=== PATIENT | female | born 1950 | race Caucasian/White ===

== ENCOUNTER 2016-10-27 14:39 | Emergency (ER) | payer MEDICARE, MEDICAID ==
[2016-10-27 16:05] VITALS: BP 103/48
--- NOTE | 2016-10-27 17:15 | RAD ---
CLINICAL HISTORY: Left flank pain and hematuria COMPARISON: CT abdomen pelvis October 17, 2004 TECHNIQUE: Noncontrast CT examination of the abdomen and pelvis from the lung bases through the initial tuberosities. FINDINGS: VISUALIZED LUNG BASES: The visualized lung bases are grossly clear. There is no pleural effusion. ABDOMEN AND PELVIS: Evaluation of the solid organs and vasculature is limited without intravenous contrast. The liver exhibits homogenous hypoattenuation relative to the spleen. The spleen, pancreas and adrenal glands are grossly normal in appearance. The gallbladder is surgically absent. The kidneys exhibit multiple subcentimeter nodules that are too small to characterize but appear hyperdense. At least one fluid density cyst is identified at the superior pole of the right kidney. There are no renal calculi or signs of hydronephrosis. Evaluation of the gastrointestinal tract is limited in the absence of oral contrast. The small and large bowel are not distended. The 6 mm appendix is identified in the right lower quadrant with gas in the lumen (image [id number]). Scattered rectosigmoid diverticula are seen but none exhibit acute inflammatory changes characteristic of diverticulitis. There is no gross retroperitoneal or mesenteric lymphadenopathy. In the left hemipelvis there is a 2.4 cm fluid density structure most consistent with an ovarian follicle. In the right pelvis there is a similar 2.3 cm structure. The moderately calcified abdominal aorta and iliac arteries are normal in course and diameter. Degenerative changes include multilevel loss of intervertebral disc height involving the lower thoracic and lumbar spine.There are no sinister bone lesions. The superficial portion of the patient's left abdominal wall is cut off from the [id number] due to the patient's large body habitus. IMPRESSION: 1. No renal calculi or hydronephrosis identified bilaterally. 2. There are subcentimeter renal structures bilaterally, some appear hyperattenuating. These are of low clinical suspicion but can be further characterize with nonemergent ultrasound. 3. Fluid density structures measuring 2.3 cm are seen in the bilateral adnexa most consistent with ovarian follicles. These appear stable when compared to the 2004 CT examination. If clinically warranted further characterization can be made with nonemergent pelvic ultrasound. 4. Scattered diverticula in the rectosigmoid colon but none exhibit acute focal inflammatory change characteristic of diverticulitis. 5. The appendix appears normal. 6. There are additional chronic, degenerative and iatrogenic findings described in the body of the report.
[2016-10-27] MEDS ORDERED: Ciprofloxacin TAB* 500 MG PO ONE (17:22)
--- NOTE | 2016-10-27 17:25 | UC ---
Complaint Female HPI - HPI Summary HPI Summary: 66 yo female with a 3 day hx of dysuria and intermittent left flank pain which has been severe at times no f/c slight nausea no vomiting hx kidney stones hx pyelo no abd pain - History Of Current Complaint Chief Complaint: UCGU Stated Complaint: URINARY Time Seen by Provider: 10/27/16 15:58 Hx Last Menstrual Period: years ago Onset/Duration: Sudden Onset, Lasting Minutes Timing: Intermittent, Lasting Minutes Severity Initially: Moderate Severity Currently: Mild Pain Intensity: 1 Pain Scale Used: 0-10 Numeric Character: Burning, Colicy Aggravating Factor(s): Urination Associated Signs And Symptoms: Positive: Back Pain, Nausea. Negative: Fever, Vaginal Bleeding/Discharge, Vaginal Discharge, Vomiting(# Of Episodes =), Genital Swelling, Genital Blisters, Retained Foregin Body (Specify) Related Hx: Similar Episode/Dx as: - kidney stone/pyelo - Allergies/Home Medications Allergies/Adverse Reactions: Allergies Allergy/AdvReac Type Severity Reaction Status Date / Time No Known Allergies Allergy Verified 10/27/16 15:50 PMH/Surg Hx/FS Hx/Imm Hx Endocrine History Of: Reports: Diabetes - diet controlled Cardiovascular History Of: Reports: Hypertension - Surgical History Surgical History: Yes Surgery Procedure, Year, and Place: Back Surgery; Left Wrist Surgery; Cholecystectomy 12/28/13 at [facility] - Family History Known Family History: Positive: Hypertension, Diabetes - Social History Alcohol Use: Rare Substance Use Type: None Substance Use Comment - Amount & Last Used: hydrocodone and tramadol Smoking Status (MU): Former Smoker Type: Cigarettes Have You Smoked in the Last Year: No When Did the Patient Quit Smoking/Using Tobacco: quit in 2004 Review of Systems Constitutional: Negative Skin: Negative Eyes: Negative ENT: Negative Respiratory: Negative Cardiovascular: Negative Gastrointestinal: Other - left flane Genitourinary: Dysuria Motor: Negative Neurovascular: Negative Musculoskeletal: Negative Neurological: Negative Psychological: Negative All Other Systems Reviewed And Are Negative: Yes Physical Exam Triage Information Reviewed: Yes Vital Signs: Initial Vital Signs Temp 98.4 F 10/27/16 15:53 Pulse 73 10/27/16 15:53 Resp 16 10/27/16 15:53 BP 103/48 10/27/16 15:53 Pulse Ox 98 10/27/16 15:53 Eyes: Positive: Conjunctiva Clear ENT: Positive: Normal ENT inspection. Negative: Nasal congestion, Nasal drainage, Trismus, Muffled/hoarse voice Neck: Positive: Supple, Nontender Respiratory: Positive: Lungs clear, Normal breath sounds, No respiratory distress Cardiovascular: Positive: RRR, No Murmur Abdomen Description: Positive: Nontender, No Organomegaly, Soft. Negative: CVA Tenderness (R), CVA Tenderness (L) Bowel Sounds: Positive: Present Musculoskeletal Exam: Normal Musculoskeletal: Positive: ROM Intact, No Edema Neurological Exam: Normal Neurological: Positive: Alert Psychological Exam: Normal Skin Exam: Normal Complaint Female Dx - Differential Dx/Diagnosis Provider Diagnoses: dysuria of uncertain cause. left flank pain of uncertain cause Discharge - Discharge Plan Condition: Stable Disposition: HOME Prescriptions: Ciprofloxacin TAB* [Cipro 250 MG Tab*] 250 mg PO BID #12 tab Patient Education Materials: Dysuria (ED) Referrals: Arnoldo Zamudio [Primary Care Provider] - 3 Days (if not better) Additional Instructions: a urine culture is pending CT showed no stone
== END 2016-10-27 17:36 | disposition home or self-care (01) ==
LOC: UCCORT 14:39
DX: R30.0 Dysuria (principal); R10.9 Unspecified abdominal pain; R11.0 Nausea; Z87.442 Personal history of urinary calculi; Z90.49 Acquired absence of other specified parts of digestive tract; Z87.891 Personal history of nicotine dependence
CPT/HCPCS: 74176; 81003; 87086; 99212; A9270-GY; G0463

== ENCOUNTER 2016-11-01 14:45 | Emergency (ER) | payer MEDICARE, MEDICAID ==
[2016-11-01 15:15] VITALS: BP 141/75
--- NOTE | 2016-11-01 20:46 | UC ---
Abdominal Pain Female HPI - HPI Summary HPI Summary: NO BM FOR 4-5 DAYS. DEVELOPED LUQ AND FLANK PAIN LAST NIGHT. TOOK LAXATIVE AND ENEMA LAST NIGHT. ON HYDROCODONE AND GABAPENTIN. IN THE ~30MIN PRIOR TO THIS ENCOUNTER, BEGAN RELEASING STOOL, BOTH DIARRHEA AND SMALL PIECES. PAIN IN BACK AND LUQ RESOLVED. NO PT HAS SOME CRAMPING IN LOWER ABD. RECENT UTI. SEEN HERE. [place] [facility]. - History of Current Complaint Chief Complaint: UCGeneralIllness Stated Complaint: PERSONAL Time Seen by Provider: 11/01/16 16:49 Hx Obtained From: Patient Hx Last Menstrual Period: years ago Onset/Duration: Gradual Onset, Lasting Days - 4, Resolved - SIG IMPROVEMENT IN LAST 30MIN Severity Initially: Moderate Severity Currently: Mild Pain Intensity: 0 Pain Scale Used: 0-10 Numeric Location: Discrete At: LUQ, Other - CURRENTLY CRAMPING IN LOWER ABD. Radiates: Yes Radiates to: Back Character: Cramping, Sharp Aggravating Factor(s): Nothing Alleviating Factor(s): Other: - LAXATIVES, ENEMA Associated Signs and Symptoms: Positive: Constipation, Diarrhea. Negative: Diaphoresis, Fever, Cough, Chest Pain, Dizzy, Back Pain, Blood in Stool, Urinary Symptoms, Decreased Appetite, Nausea, Vomiting Allergies/Adverse Reactions: Allergies Allergy/AdvReac Type Severity Reaction Status Date / Time No Known Allergies Allergy Verified 11/01/16 15:15 PMH/Surg Hx/FS Hx/Imm Hx Endocrine History Of: Reports: Diabetes - po meds Cardiovascular History Of: Reports: Hypertension - Surgical History Surgical History: Yes Surgery Procedure, Year, and Place: Back Surgery; Left Wrist Surgery; [facility] 12[facility]28/13 [facility] - Family History Known Family History: Positive: Hypertension, Diabetes - Social History Alcohol Use: Rare Substance Use Type: None Substance Use Comment - Amount & Last Used: hydrocodone and tramadol Smoking Status (MU): Former Smoker Type: Cigarettes Have You Smoked in the Last Year: No When Did the Patient Quit Smoking/Using Tobacco: quit in 2004 Review of Systems Constitutional: Negative Skin: Negative Eyes: Negative ENT: Negative Respiratory: Negative Cardiovascular: Negative Gastrointestinal: Abdominal Pain - RESOLVING, Diarrhea Genitourinary: Negative Motor: Negative Neurovascular: Negative Musculoskeletal: Negative Neurological: Negative Psychological: Negative All Other Systems Reviewed And Are Negative: Yes Physical Exam Triage Information Reviewed: Yes Appearance: Well-Appearing, No Pain Distress, Obese Vital Signs: Initial Vital Signs Temp 97.1 F 11/01/16 15:10 Pulse 82 11/01/16 15:10 Resp 16 11/01/16 15:10 BP 141/75 11/01/16 15:10 Pulse Ox 100 11/01/16 15:10 Vital Signs Reviewed: Yes Eyes: Positive: Conjunctiva Clear. Negative: Discharge ENT: Positive: Hearing grossly normal. Negative: Muffled/hoarse voice Neck exam: Normal Neck: Positive: Supple Respiratory: Positive: Lungs clear, Normal breath sounds, No respiratory distress, No accessory muscle use Cardiovascular: Positive: RRR, No Murmur Abdomen Description: Positive: Nontender, Soft. Negative: CVA Tenderness (R), CVA Tenderness (L), Distended, Guarding, McBurney's Point Tenderness Musculoskeletal Exam: Normal Neurological: Positive: Alert, Muscle Tone Normal Psychological: Positive: Age Appropriate Behavior Skin Exam: Normal Abd Pain Female Course/Dx - Differential Dx/Diagnosis Differential Diagnosis: Constipation, Irritable Bowel Syndrome, Other - GASTROENTERITIS Provider Diagnoses: CONSTIPATION Discharge - Discharge Plan Condition: Stable Disposition: HOME Prescriptions: Polyethylene Glycol 3350* [Miralax*] 17 gm PO DAILY #1 box Patient Education Materials: Constipation (ED) Referrals: Josh TOUSSAINT,Arnoldo Graves [Primary Care Provider] - If Needed Additional Instructions: WE RECOMMEND THAT YOU USE MIRALAX DAILY UNTIL YOU FEEL THAT YOU ARE CLEANED OUT. YOU ARE ON MORE THAN ONE TYPE OF MEDICATION THAT CAUSES CONSTIPATION. SO, ONCE YOU ARE CLEANED OUT, WE RECOMMEND THAT YOU TAKE DAILY FIBER ALONG WITH 2-3 STEWED PRUNES TO PREVENT CONSTIPATION. WE ALSO RECOMMEND THAT YOU USE A SQUATTY POTTY TO IMPROVE BOWEL MOTILITY. ANY TIME YOU TAKE AN ANTIBIOTIC, IT IS IMPORTANT TO REPLENISH THE BODY'S BALANCE OF "GOOD" BACTERIA BY EATING HIGH QUALITY CULTURED FOOD SUCH YOGURT, SAURKRAUT OR RICH CHI AND/OR TAKING A PROBIOTIC SUPPLEMENT.
== END 2016-11-01 17:44 | disposition home or self-care (01) ==
LOC: UCCORT 14:45
DX: K59.00 Constipation, unspecified (principal); E66.9 Obesity, unspecified; Z87.440 Personal history of urinary (tract) infections; Z87.891 Personal history of nicotine dependence
CPT/HCPCS: 99212; G0463

== ENCOUNTER 2017-12-06 08:56 | Emergency (ER) | payer MEDICARE, OTHER ==
[2017-12-06 09:22] VITALS: BP 115/63
--- NOTE | 2017-12-06 10:40 | UC ---
Skin Complaint HPI - HPI Summary HPI Summary: Patient he urgent care today with a tick bite on her left breast at about 7:00. Patient believe the tick got attached to her yesterday was not 100% sure, last night she tried to remove it with a pair of nail clippers. She caused a irritation to the area around the tick bite externally the tick appears to be gone there is scabbing on the skin. During visit I educated patient to the proper way to remove a tick and provide wound care to the site - History of Current Complaint Chief Complaint: UCSkin Time Seen by Provider: 12/06/17 10:33 Stated Complaint: TICK BITE Hx Obtained From: Patient Hx Last Menstrual Period: years ago ?: No Onset/Duration: Sudden Onset, Lasting Days - 1, Still Present Skin Exposure Onset/Duration: Days Ago - 1 Timing: Constant Onset Severity: Mild Current Severity: Mild Location: Discrete - left breast about 7pm Character: Pain, Redness Aggravating Factor(s): Nothing Alleviating Factor(s): Nothing Associated Signs & Symptoms: Positive: Negative Related History: Insect Bite/Sting - Allergy/Home Medications Allergies/Adverse Reactions: Allergies Allergy/AdvReac Type Severity Reaction Status Date / Time No Known Allergies Allergy Verified 12/06/17 09:22 Home Medications: Home Medications Gabapentin [Neurontin] 100 mg PO BID 12/06/17 [History Confirmed 12/06/17] Review of Systems Constitutional: Negative Skin: Bruising - Skin bruising and some abrasion of top layers of skin removed from patient attemptint to use toenail clippers to remove the tick Eyes: Negative ENT: Negative Respiratory: Negative Cardiovascular: Negative Gastrointestinal: Negative Genitourinary: Negative Motor: Negative Neurovascular: Negative Musculoskeletal: Negative Neurological: Negative Psychological: Negative Is Patient Immunocompromised?: No All Other Systems Reviewed And Are Negative: Yes PMH/Surg Hx/FS Hx/Imm Hx Previously Healthy: No - chronic pain Cardiovascular History: Hypertension - Surgical History Surgical History: Yes Surgery Procedure, Year, and Place: Back Surgery; Left Wrist Surgery; Cholecystectomy 12/28/13 at [facility] - Family History Known Family History: Positive: Hypertension, Diabetes - Social History Occupation: Retired Lives: With Family Alcohol Use: None Substance Use Type: None Substance Use Comment - Amount & Last Used: hydrocodone and tramadol Smoking Status (MU): Former Smoker Type: Cigarettes Have You Smoked in the Last Year: No When Did the Patient Quit Smoking/Using Tobacco: quit in 2004 Physical Exam Triage Information Reviewed: Yes Appearance: Well-Appearing, No Pain Distress, Obese Vital Signs: Initial Vital Signs Temp 97.3 F 12/06/17 09:11 Pulse 67 12/06/17 09:11 Resp 18 12/06/17 09:11 BP 115/63 12/06/17 09:11 Pulse Ox 100 12/06/17 09:11 Vital Signs Reviewed: Yes Eye Exam: Normal Eyes: Positive: Conjunctiva Clear ENT Exam: Normal ENT: Positive: Normal ENT inspection, Hearing grossly normal, Uvula midline. Negative: Nasal congestion, Trismus, Muffled voice, Hoarse voice, Dental tenderness, Sinus tenderness Neck exam: Normal Neck: Positive: Supple, Nontender, No Lymphadenopathy Respiratory Exam: Normal Respiratory: Positive: Chest non-tender, Lungs clear, Normal breath sounds, No respiratory distress, No accessory muscle use Cardiovascular Exam: Normal Cardiovascular: Positive: RRR, No Murmur, Pulses Normal, Brisk Capillary Refill Musculoskeletal Exam: Normal Musculoskeletal: Positive: Strength Intact, ROM Intact, No Edema Neurological Exam: Normal Neurological: Positive: Alert, Muscle Tone Normal Psychological Exam: Normal Skin Exam: Other Skin: Positive: Other - Tick attachment site the left medial side of the past about 1 cm diameter of skin abrasion and irritation from patient using clippers to cut and remove the tick now mostly scabed and tender to touch Course/Dx - Course Course Of Treatment: Mild warm soap and water wash and warm compresses. Doxycycline 200 mg by mouth 1 now. Follow with PCP when necessary Be special wary of signs and symptoms of Lyme in the next 7- disease including body aches pains rashes and flulike illness - Diagnoses Provider Diagnoses: Tick bite with Lyme postexposure prophylaxis Discharge - Sign-Out/Discharge Documenting (check all that apply): Discharge/Admit/Transfer - Discharge Plan Condition: Stable Disposition: HOME Prescriptions: DOXYcycline CAP(*) [DOXYcycline 100MG CAP(*)] 200 mg PO DAILY #2 cap Patient Education Materials: Tick Bite (ED) Referrals: Arnoldo Zamudio [Primary Care Provider] - If Needed - Billing Disposition and Condition Condition: STABLE Disposition: HOME
== END 2017-12-06 10:50 | disposition home or self-care (01) ==
LOC: UCCORT 08:56
DX: S20.162A Insect bite (nonvenomous) of breast, left breast, initial encounter (principal); W57.XXXA Bitten or stung by nonvenomous insect and other nonvenomous arthropods, initial encounter; Y93.9 Activity, unspecified; Y92.9 Unspecified place or not applicable; Z79.899 Other long term (current) drug therapy; Z87.891 Personal history of nicotine dependence
CPT/HCPCS: 99212; G0463

== ENCOUNTER 2019-09-26 10:20 | Emergency (ER) | payer MEDICARE, OTHER ==
[2019-09-26 10:46] VITALS: BP 134/77
--- NOTE | 2019-09-26 10:59 | UC ---
Upper Extremity HPI - HPI Summary HPI Summary: 69 year old female present with complaint of left upper arm/shoulder pain over the past week after she tripped on her dog and fell onto her kitchen floor. Pain is not improving, worse with movements. Denies head nor neck injury, no loc. Denies pain in any other location. Additionally, she notes sinus pain and congestion with productive cough symptoms x 2 weeks. Denies fever, body aches nor chills. - History of Current Complaint Chief Complaint: UCUpperExtremity Stated Complaint: LT ARM/SHOULDER INJURY Time Seen by Provider: 09/26/19 10:56 Hx Obtained From: Patient Hx Last Menstrual Period: years ago Pain Intensity: 9 - Allergies/Home Medications Allergies/Adverse Reactions: Allergies Allergy/AdvReac Type Severity Reaction Status Date / Time No Known Allergies Allergy Verified 09/26/19 10:41 Home Medications: Home Medications RX: Tramadol HCl [Ultram] 50 mg PO Q4H PRN MDD 6 11/16/12 [History Confirmed ] RX: traZODone TAB* [Desyrel TAB*] 50 mg PO BEDTIME 02/23/15 [History Confirmed 09/26/19] RX: lisinopriL [Lisinopril 30 MG-] 30 mg PO DAILY 10/06/17 [History Confirmed ] RX: Gabapentin [Neurontin] 100 mg PO BID 12/06/17 [History Confirmed 09/26/19] RX: Linaclotide [Linzess] 145 mcg PO DAILY 09/07/19 [History Confirmed 09/26/19] RX: Famotidine TAB* [Pepcid 20 MG TAB*] 20 mg PO DAILY 09/26/19 [History Confirmed 09/26/19] RX: Ibuprofen TAB* [Motrin TAB* 600 MG] 600 mg PO Q6H PRN 09/26/19 [History Confirmed 09/26/19] Sulfamethox/Trimethoprim DS* [Bactrim DS 800/160 TAB*] 1 tab PO BID 10 Days #20 tab 09/26/19 [Rx] PMH/Surg Hx/FS Hx/Imm Hx Previously Healthy: Yes Cardiovascular History: Hypertension - Surgical History Surgical History: Yes Surgery Procedure, Year, and Place: Back Surgery; Left Wrist Surgery; [facility] 12/28/13 at [facility] - Family History Known Family History: Positive: Hypertension, Diabetes - Social History Alcohol Use: None Substance Use Type: None Substance Use Comment - Amount & Last Used: hydrocodone and tramadol Smoking Status (MU): Former Smoker Type: Cigarettes Have You Smoked in the Last Year: No When Did the Patient Quit Smoking/Using Tobacco: quit in 2004 Review of Systems All Other Systems Reviewed And Are Negative: Yes Constitutional: Negative: Fever, Chills Skin: Negative: Rash, Bruising Eyes: Positive: Negative ENT: Positive: Ear Ache - bilateral, Sinus Congestion, Sinus Pain/Tenderness. Negative: Sore Throat Respiratory: Positive: Cough. Negative: Shortness Of Breath Cardiovascular: Negative: Palpitations, Chest Pain Gastrointestinal: Negative: Vomiting, Diarrhea, Nausea Genitourinary: Positive: Negative Motor: Positive: Decreased ROM - left shoulder due to pain Neurovascular: Negative: Decreased Sensation, Decreased Pulses Musculoskeletal: Positive: Decreased ROM - left shoulder due to pain Neurological/Mental Status: Positive: Negative Psychological: Positive: Negative Is Patient Immunocompromised?: No Physical Exam Triage Information Reviewed: Yes Appearance: Well-Appearing, Well-Nourished Vital Signs: Initial Vital Signs Temp 97.5 F 09/26/19 10:38 Pulse 70 09/26/19 10:38 Resp 18 09/26/19 10:38 BP 134/77 09/26/19 10:38 Pulse Ox 100 09/26/19 10:38 Vital Signs Reviewed: Yes Eye Exam: Normal ENT: Positive: Pharynx normal, Nasal congestion, TMs normal, Sinus tenderness - bilateral maxillary Neck: Positive: Supple, Nontender, No Lymphadenopathy Respiratory: Positive: Lungs clear, No respiratory distress. Negative: Respiratory distress, Crackles, Rhonchi, Wheezing Cardiovascular: Positive: RRR, No Murmur Abdomen Description: Positive: Nontender, Soft Musculoskeletal: Positive: ROM Limited @ - left shoulder, pain with abduction > 45 degrees Neurological Exam: Normal Psychological Exam: Normal Skin Exam: Normal Diagnostics - Radiology No standard instances Radiology Interpretation Completed By: Radiologist Summary of Radiographic Findings: Radio Sportscaster: Ferdinand Metcalf Daniel, ( [id number]) Right Of Way Maintenance Supervisor: ARMINDA (KAELYNANCE) Report Date: 09/26/2019 11:31: 00 Report Status: Final Start of Report Content Patient Name: JEB CRUM Medical Record#: [id number] Ordering Physician: Eliel Rust MD Acct.#: [id number] : 1950 Age: 69 Sex: F Location: [facility] Exam Date: 09/26/191113 ADM Status: [facility] Order Information: SHOULDER LEFT 2+ VWS Accession Number: [id number] CPT: 59014 HISTORY: pain s/p fall one week ago . COMPARISONS: None relevant available at the time of dictation. VIEWS: 4, Frontal internal rotation, external rotation, outlet, and axillary views of the left shoulder FINDINGS: BONE DENSITY: Normal. BONES: There is no displaced fracture. JOINTS: There is mild to moderate osteoarthritis of the a.c. and glenohumeral joints. ALIGNMENT: There is no dislocation. SOFT TISSUES: Unremarkable. OTHER FINDINGS: None. IMPRESSION: OSTEOARTHRITIS. NO ACUTE OSSEOUS INJURY. IF SYMPTOMS PERSIST, RECOMMEND REPEAT IMAGING. < Electronically signed by Ferdinand Metcalf MD in OV> 09/26/191126 Dictated By : Ferdinand Metcalf MD Dictated Date/Time: 09/26/191126 Transcribed Date/Time : 09/26/191126 Copy to: CC:Arnoldo TOUSSAINT; Eliel Rust MD Imaging - [facility] [address] [address] ph [phone]) ph ([phone]) ph ([phone]) End of Report Content ========= Upper Extremity Course/Dx - Course Course Of Treatment: States amox has not worked previously for her sinus infection, usually responds to Bactrim. - Differential Dx/Diagnosis Provider Diagnosis: Sinusitis, Left shoulder pain Discharge ED - Sign-Out/Discharge Documenting (check all that apply): Patient Departure All imaging exams completed and their final reports reviewed: Yes - Discharge Plan Condition: Stable Disposition: HOME Prescriptions: Sulfamethox/Trimethoprim DS* [Bactrim DS 800/160 TAB*] 1 tab PO BID 10 Days #20 tab Referrals: Arnoldo Moreno PA [Primary Care Provider] - Additional Instructions: Physical therapy is recommended for your left shoulder. Take antibiotics as prescribed for your sinus infection. Follow-up with your Primary Care Physician if your symptoms persist or worsen. - Billing Disposition and Condition Condition: STABLE Disposition: Home
== END 2019-09-26 11:52 | disposition home or self-care (01) ==
LOC: UCCORT 10:20
DX: M25.512 Pain in left shoulder (principal); J32.9 Chronic sinusitis, unspecified; I10 Essential (primary) hypertension; Z87.891 Personal history of nicotine dependence; Z79.899 Other long term (current) drug therapy
CPT/HCPCS: 99212; G0463